=== PATIENT | female | born 1950 | race Caucasian/White ===

== ENCOUNTER → 2022-04-24 | Outpatient (CLI) | payer MEDICARE, OTHER ==
[~2022-04-24] MED LIST: DiphenhydrAMINE HCL 50 MG/ML VIAL ONE; IOHEXOL 350 MG/ML 100ML INFUS..BTL IV ONE; SOLU-MEDROL 125MG VIAL ONE
== END | disposition home or self-care (01) ==
LOC: RAH 08:37
PROVIDERS: ATTEND Student in an Organized Health Care Education/Training Program
DX: R07.9 Chest pain, unspecified (principal); M47.815 Spondylosis without myelopathy or radiculopathy, thoracolumbar region
CPT/HCPCS: 75574; J1200; J2930; Q9967